=== PATIENT | male | born 2000 | race Caucasian/White ===

== ENCOUNTER 2022-06-27 15:14 | Outpatient (CLI) | payer OTHER, SELFPAY ==
--- NOTE | ~2022-06-27 | XR_ITS ---
EXAMINATION: XR chest 2V DATE: 06/27/2022 15:43 INDICATION: Shortness of breath and asthma TECHNIQUE: PA and lateral views of the chest were obtained. COMPARISON: None. FINDINGS: A few small calcified nodules in the posterior mid lung zone consistent with old granulomatous diseas e. No other airspace opacities, pulmonary edema, pleural effusion or pneumothorax. Cardiomediastinal silhouette is normal. Bones and soft tissues are unremarkable. IMPRESSION: 1. No acute cardiopulmonary disease. Reviewed, dictated and finalized at location A. ELING RAMPMAN
== END 2022-06-27 15:15 | disposition home or self-care (01) ==
LOC: ANHIMG 15:21
PROVIDERS: PCP Physician Assistant; Visit Provider Physician Assistant
DX: J45.909 Unspecified asthma, uncomplicated (principal)
CPT/HCPCS: 71046